=== PATIENT | female | born 1995 | race African-American/Black ===

== ENCOUNTER 2025-02-03 05:05 | Inpatient (IN) | payer OTHER, MEDICAID ==
[2025-02-03] VITALS (62 sets, daily range): BP systolic 128–226; BP diastolic 72–117; PULSE 85–102; RESP 8–18; TEMP 36.114–36.8; O2SAT 85–98
[~2025-02-03] VITALS: Ht 160.3 cm; Wt 75.5 kg
[~2025-02-03 05:05] MED LIST: INSULIN
[2025-02-03] MEDS: NITROGLYCERIN 0.4MG TABLET SL SL ONE (05:54)
[2025-02-03] MEDS: HYDRALAZINE 20MG/ML VIAL IV ONE ×2 (06:10→08:05)
[2025-02-03] MEDS: MORPHINE SULFATE 4 MG/ML INJ (FOR IV/IM USE) IV STA (06:10)
[2025-02-03] MEDS: ONDANSETRON HCL 4MG/2ML INJ IV STA (06:10)
[2025-02-03 06:27] LABS: BASOPHILS % 0.8 % (0.0-2.0); DIFFERENTIAL COMMENT 0; EOSINOPHILS % 3.9 % (0.0-5.0); HEMATOCRIT. 30.8 % (36.0-48.0); HEMOGLOBIN. 9.9 g/dL (12.0-16.0); LYMPHOCYTES % 18.3 % (20.0-50.0); MEAN CORPUSCULAR HEMOGLOBIN 24.5 pg (28.0-32.0); MEAN CORPUSCULAR HGB CONC 32.1 g/dL (31.0-37.0); MEAN CORPUSCULAR VOLUME 76.3 fL (81.0-99.0); MEAN PLATELET VOLUME 9.4 fl (7.4-10.4); MONOCYTES % 6.5 % (2.0-8.0); NEUTROPHILS % 70.5 % (40.0-76.0); PLATELET 250 x1000/uL (130-400); RED BLOOD CELL COUNT 4.04 mill/uL (4.2-5.4); RED CELL DISTRIBUTION WIDTH 18.8 % (11.6-14.6)
[2025-02-03 06:39] LABS: CHLORIDE 104 mEq/L (98-107); SODIUM 141 mEq/L (136-145)
[2025-02-03 06:40] LABS: CALCIUM 8.2 mg/dL (8.7-10.4); CARBON DIOXIDE 27 mEq/L (21-32)
[2025-02-03 06:45] LABS: HCG SCREEN NEGATIVE; UREA NITROGEN BLOOD 54 mg/dL (9-23)
[2025-02-03] MEDS ORDERED: HYDRALAZINE HCL 100MG TABLET PO ONE (07:15)
[2025-02-03 07:31] LABS: CREATININE 8.5 mg/dL (0.6-1.0); POTASSIUM 6.2 mEq/L (3.5-5.1)
[2025-02-03 07:32] LABS: GLUCOSE 102 mg/dL (70-105); TROPONIN I HIGH SENSITIVITY 310 ng/L (3.0-34)
[2025-02-03] MEDS ORDERED: CALCIUM GLUCONATE 1,000 MG in DEXT 5% WATER 100 ML IV ONE (08:00)
[2025-02-03] MEDS: HYDRALAZINE HCL 25MG TABLET PO SCH (08:12)
[2025-02-03] MEDS: DEXTROSE 50% WATER 50ML SYRINGE IV ONE (08:23)
[2025-02-03] MEDS: SODIUM BICARBONATE 8.4% 50MEQ/50ML SYR IV ONE (08:23)
[2025-02-03] MEDS: CALCIUM GLUCONATE 1GM PREMIX 50 ML IV SCH (08:23)
[2025-02-03] MEDS: INSULIN REGULAR (HUMULIN R) 1000UNITS/10ML VIAL IV ONE (08:25)
[2025-02-03] MEDS ORDERED: GUAIFENESIN 200MG/10ML SUGAR FREE UDC PO PRN (09:30)
[2025-02-03] MEDS ORDERED: MAGNESIUM/ALUMINUM HYDROXIDE/SIMETHICONE 30ML UDC PO PRN (09:30)
[2025-02-03] MEDS ORDERED: IPRATROPIUM/ALBUTEROL 0.5-3(2.5)MG/3ML NEB HHN PRN (09:30)
[2025-02-03] MEDS ORDERED: DOCUSATE SODIUM 100MG CAPSULE PO PRN (09:30)
[2025-02-03] MEDS ORDERED: ACETAMINOPHEN 325MG TABLET PO PRN (09:30)
[2025-02-03] MEDS ORDERED: DEXTROSE 50% WATER 50ML SYRINGE IV PRN (09:30)
[2025-02-03] MEDS: CLONIDINE 0.3MG TABLET PO SCH (09:49)
[2025-02-03] MEDS: LOSARTAN 25 MG TABLET PO SCH (09:49)
[2025-02-03] MEDS: LABETALOL 5MG/ML 4ML INJ IV SCH (10:03)
[2025-02-03] MEDS: ACETAMINOPHEN 325MG TABLET PO PRN (10:12)
[2025-02-03 11:24] LABS: TRIGLYCERIDE 144 mg/dL (0-150)
[2025-02-03 11:25] LABS: LDL CHOLESTEROL 95 mg/dL (5-100)
[2025-02-03 11:26] LABS: ALBUMIN 3.5 g/dL (3.2-4.8); CHOLESTEROL 162 mg/dL (<200); HDL CHOLESTEROL 39 mg/dL (>65)
[2025-02-03 11:29] LABS: IRON 39 ug/dL (50-170); THYROID STIMULATING HORMONE 2.88 uIU/mL (0.55-4.78)
[2025-02-03 11:32] LABS: TOTAL IRON BINDING CAPACITY 296 ug/dl (250-425)
[2025-02-03 11:33] LABS: FOLIC ACID (FOLATE) SERUM > 20.00 ng/mL (>5.38)
[2025-02-03 11:35] LABS: FERRITIN 40 ng/mL (10-291)
[2025-02-03 11:46] LABS: HEPATITIS B SURFACE ANTIGEN NEGATIVE (Negative)
[2025-02-03 12:24] LABS: VITAMIN B12 SERUM > 2000 pg/mL (211-911)
[2025-02-03] MEDS: BLOOD SUGAR DIAGNOSTIC STRIP TEST SCH (12:48)
[2025-02-03] MEDS: PANTOPRAZOLE SODIUM 40 MG/VIAL IV SCH (12:59)
[2025-02-03] MEDS: ENOXAPARIN 30MG/0.3ML SYR SUBCUT SCH (12:59)
[2025-02-03 13:12] LABS: HEPATITIS A AB IGM NEGATIVE (Negative)
[2025-02-03 13:13] LABS: HEPATITIS B CORE AB IGM NEGATIVE (Negative); HEPATITIS C AB NON REACTIVE (Neg) (Negative)
[2025-02-03] MEDS ORDERED: PATIENT'S OWN INSULIN PUMP XX SCH (13:15)
[2025-02-03 13:33] LABS: D-DIMER 1.75 mg/L FEU (<0.50); PHOSPHORUS 5.5 mg/dL (2.5-4.9); PROTHROMBIN TIME 10.7 sec (9.6-11.0)
[2025-02-03 13:36] LABS: T4 FREE 0.91 ng/dL (0.89-1.76)
[2025-02-03 14:10] LABS: TROPONIN I HIGH SENSITIVITY 305 ng/L (3.0-34)
[2025-02-03] MEDS: CLONIDINE 0.1MG TABLET PO PRN (14:27)
[2025-02-03] MEDS ORDERED: LABETALOL HCL 100MG TABLET PO SCH (14:30)
[2025-02-03] MEDS: FUROSEMIDE 100MG/10ML VIAL IVP SCH (14:47)
[2025-02-03] MEDS: HYDRALAZINE HCL 50MG TABLET PO SCH (16:16)
[2025-02-03] MEDS: NIFEDIPINE XL 60MG TAB PO SCH (16:17)
[2025-02-03] MEDS: NICARDIPINE 40MG/200ML PREMIX 200 ML IV PRN (18:29)
[2025-02-03] MEDS ORDERED: MAG1TABL2 PO (18:57)
[2025-02-03] MEDS ORDERED: EPOE200014 IJ (18:57)
[2025-02-03] MEDS ORDERED: BISO5TAB13 PO (18:57)
[2025-02-03] MEDS ORDERED: CALC-1098 PO (18:57)
[2025-02-03] MEDS ORDERED: LABE200T9 PO (18:57)
[2025-02-03] MEDS ORDERED: TORS20TA4 PO (18:57)
[2025-02-03] MEDS ORDERED: SULF1TAB48 PO (18:57)
[2025-02-03] MEDS ORDERED: CLON1PAT10 TD (18:57)
[2025-02-03] MEDS ORDERED: HYDR25TA78 PO (18:57)
[2025-02-03] MEDS ORDERED: MINO2.5T2 PO (18:57)
[2025-02-03] MEDS ORDERED: SEVE800T25 PO (18:57)
[2025-02-03] MEDS ORDERED: AZEL137S10 NS (18:57)
[2025-02-03] MEDS ORDERED: LOSA25TA26 PO (18:57)
[2025-02-03] MEDS ORDERED: LIPA1CAP18 PO (18:57)
[2025-02-03] MEDS ORDERED: CALC30CA PO (18:57)
[2025-02-03] MEDS ORDERED: FLUC100T42 PO (18:57)
[2025-02-03] MEDS ORDERED: DOCU-422 PO (18:57)
[2025-02-03 20:20] LABS: CREATINE KINASE MB FRACTION 2.7 ng/mL (0.5-3.6)
[2025-02-03] MEDS ORDERED: HYDRALAZINE HCL 25MG TABLET PO SCH (21:00)
[2025-02-03 21:09] LABS: TROPONIN I HIGH SENSITIVITY 326 ng/L (3.0-34)
[2025-02-03] MEDS: LABETALOL HCL 100MG TABLET PO SCH (21:48)
[2025-02-03 22:17] LABS: BASOPHILS % 0.6 % (0.0-2.0); DIFFERENTIAL COMMENT 0; EOSINOPHILS % 3.2 % (0.0-5.0); HEMATOCRIT. 28.7 % (36.0-48.0); HEMOGLOBIN. 9.3 g/dL (12.0-16.0); LYMPHOCYTES % 18.6 % (20.0-50.0); MEAN CORPUSCULAR HEMOGLOBIN 24.6 pg (28.0-32.0); MEAN CORPUSCULAR HGB CONC 32.3 g/dL (31.0-37.0); MEAN CORPUSCULAR VOLUME 76.3 fL (81.0-99.0); MEAN PLATELET VOLUME 9.1 fl (7.4-10.4); MONOCYTES % 7.7 % (2.0-8.0); NEUTROPHILS % 69.9 % (40.0-76.0); PLATELET 247 x1000/uL (130-400); RED BLOOD CELL COUNT 3.77 mill/uL (4.2-5.4); RED CELL DISTRIBUTION WIDTH 18.9 % (11.6-14.6); WHITE BLOOD COUNT 6.3 x1000/uL (4.5-11.0)
[2025-02-03 22:20] LABS: POTASSIUM 5.3 mEq/L (3.5-5.1)
[2025-02-03 22:44] LABS: CREATININE 5.9 mg/dL (0.6-1.0)
[2025-02-03 22:53] LABS: CREATINE KINASE MB FRACTION 2.3 ng/mL (0.5-3.6)
[2025-02-04] VITALS (98 sets, daily range): BP systolic 119–176; BP diastolic 74–107; PULSE 88–112; RESP 0–34; TEMP 36.5–37.4; O2SAT 91–100
[2025-02-04 06:18] LABS: BASOPHILS % 0.5 % (0.0-2.0); DIFFERENTIAL COMMENT 0; EOSINOPHILS % 4.2 % (0.0-5.0); HEMATOCRIT. 27.4 % (36.0-48.0); HEMOGLOBIN. 8.9 g/dL (12.0-16.0); LYMPHOCYTES % 26.1 % (20.0-50.0); MEAN CORPUSCULAR HEMOGLOBIN 24.7 pg (28.0-32.0); MEAN CORPUSCULAR HGB CONC 32.5 g/dL (31.0-37.0); MEAN CORPUSCULAR VOLUME 76.1 fL (81.0-99.0); MEAN PLATELET VOLUME 9.5 fl (7.4-10.4); MONOCYTES % 9.4 % (2.0-8.0); NEUTROPHILS % 59.8 % (40.0-76.0); PLATELET 241 x1000/uL (130-400); RED CELL DISTRIBUTION WIDTH 19.2 % (11.6-14.6); WHITE BLOOD COUNT 5.9 x1000/uL (4.5-11.0)
[2025-02-04 06:28] LABS: POTASSIUM 5.1 mEq/L (3.5-5.1)
[2025-02-04 06:30] LABS: CALCIUM 7.9 mg/dL (8.7-10.4)
[2025-02-04 06:33] LABS: CREATINE KINASE MB FRACTION 2.1 ng/mL (0.5-3.6)
[2025-02-04 06:40] LABS: CREATININE 6.6 mg/dL (0.6-1.0)
[2025-02-04] MEDS ORDERED: NALOXONE HCL 0.4MG/ML VIAL IV PRN (08:45)
[2025-02-04] MEDS: HYDROCODONE/ACETAMINOPHEN 5/325MG TABLET PO PRN (08:53)
[2025-02-04] MEDS: FERROUS SULFATE 325MG TABLET PO SCH (08:54)
[2025-02-04] MEDS ORDERED: KETOROLAC 30MG/ML VIAL IV PRN (09:45)
[2025-02-04] MEDS: ONDANSETRON HCL 4MG/2ML INJ IV PRN (09:50)
[2025-02-04] MEDS ORDERED: DIPHENHYDRAMINE 50MG CAPSULE PO SCH (14:30)
[2025-02-04] MEDS: METHYLPREDNISOLONE SOD SUCC 40MG/ML (ACT-O-VIAL) IV SCH ×2 (15:09→21:22)
[2025-02-04 16:16] LABS: CLARITY URINE CLEAR (CLEAR); COLOR URINE YELLOW (YELLOW); GLUCOSE URINE 1+ (NEGATIVE); KETONES URINE NEGATIVE (NEGATIVE); LEUKOCYTE ESTERASE URINE NEGATIVE (NEGATIVE); NITRITE URINE NEGATIVE (NEGATIVE); OCCULT BLOOD URINE TRACE (NEGATIVE); PH URINE 8.5 (4.5-8.0); PROTEIN URINE 4+ (NEGATIVE); UROBILINOGEN URINE 0.2 E.U./dL (0.2-1.0)
[2025-02-04 16:27] LABS: BACTERIA URINE 1+; SQUAMOUS EPITHELIAL CELL URINE 1+ /lpf (RARE/1+); WBC URINE 0-2 /hpf (0-2)
[2025-02-04 16:30] LABS: *AMPHETAMINES SCREEN URINE NEGATIVE (NEGATIVE); *BARBITURATES SCREEN URINE NEGATIVE (NEGATIVE); *BENZODIAZEPINES SCREEN URINE NEGATIVE (NEGATIVE)
[2025-02-04 16:31] LABS: *COCAINE SCREEN URINE NEGATIVE (NEGATIVE); CANNABINOID URINE SCREEN NEGATIVE (NEGATIVE); ECSTASY MDMA SCREEN URINE NEGATIVE (NEGATIVE); METHADONE URINE SCREEN NEGATIVE (NEGATIVE); OPIATES URINE SCREEN NEGATIVE (NEGATIVE); PHENCYCLIDINE URINE SCREEN NEGATIVE (NEGATIVE)
[2025-02-04] MEDS: DIPHENHYDRAMINE 50MG/ML VIAL IV SCH (18:18)
[2025-02-04] MEDS: FAMOTIDINE 20MG TABLET PO SCH (18:18)
[2025-02-04] MEDS: HYDROCODONE/ACETAMINOPHEN 10/325MG TABLET PO PRN (18:44)
[2025-02-04] MEDS: HYDRALAZINE 20MG/ML VIAL IV PRN (18:44)
[2025-02-05] VITALS (89 sets, daily range): BP systolic 117–228; BP diastolic 66–119; PULSE 82–101; RESP 0–31; TEMP 36.7–36.9; O2SAT 86–100
[2025-02-05] MEDS ORDERED: IPRATROPIUM/ALBUTEROL 0.5-3(2.5)MG/3ML NEB HHN SCH (06:00)
[2025-02-05] MEDS: CALCIUM CARBONATE/VITAMIN D3 500MG TABLET PO SCH (09:37)
[2025-02-05] MEDS: CALCITRIOL 0.25MCG CAPSULE PO SCH (09:37)
[2025-02-05] MEDS: DOXAZOSIN MESYLATE 2MG TABLET PO SCH ×2 (10:52→22:09)
[2025-02-05] MEDS: SEVELAMER CARBONATE 800 MG TABLET PO SCH (13:01)
[2025-02-05] MEDS: LIPASE/PROTEASE/AMYLASE 12,000/38,000/60,000 UNITS CAP DR PO SCH (13:01)
[2025-02-05] MEDS: HYDRALAZINE HCL 100MG TABLET PO SCH (14:29)
[2025-02-05] MEDS: NITROGLYCERIN 50MG PREMIX 250 ML IV PRN (16:21)
[2025-02-05] MEDS: DOCUSATE SODIUM 100MG CAPSULE PO SCH (18:04)
[2025-02-05] MEDS ORDERED: LABETALOL HCL 100MG TABLET PO SCH (21:00)
[2025-02-05] MEDS: METHYLPREDNISOLONE SOD SUCC 125MG/2ML (ACT-O-VIAL) IV SCH (22:08)
[2025-02-05] MEDS: LABETALOL HCL 300MG TABLET PO SCH (22:10)
[2025-02-06] VITALS (99 sets, daily range): BP systolic 123–220; BP diastolic 56–127; PULSE 85–114; RESP 0–29; TEMP 36.5–36.9; O2SAT 84–98
[2025-02-06 05:30] LABS: HEMATOCRIT. 25.9 % (36.0-48.0); HEMOGLOBIN. 8.1 g/dL (12.0-16.0); MEAN CORPUSCULAR HEMOGLOBIN 23.7 pg (28.0-32.0); MEAN CORPUSCULAR HGB CONC 31.3 g/dL (31.0-37.0); MEAN CORPUSCULAR VOLUME 75.8 fL (81.0-99.0); MEAN PLATELET VOLUME 9.7 fl (7.4-10.4); PLATELET 251 x1000/uL (130-400); RED BLOOD CELL COUNT 3.42 mill/uL (4.2-5.4); RED CELL DISTRIBUTION WIDTH 19.2 % (11.6-14.6); WHITE BLOOD COUNT 16.8 x1000/uL (4.5-11.0)
[2025-02-06 05:43] LABS: CHLORIDE 98 mEq/L (98-107)
[2025-02-06 05:44] LABS: CALCIUM 8.2 mg/dL (8.7-10.4); CARBON DIOXIDE 22 mEq/L (21-32)
[2025-02-06 05:45] LABS: DIFFERENTIAL COMMENT 1
[2025-02-06 05:49] LABS: GLUCOSE 330 mg/dL (70-105)
[2025-02-06 05:50] LABS: UREA NITROGEN BLOOD 59 mg/dL (9-23)
[2025-02-06 05:51] LABS: ALANINE AMINOTRANSFERASE < 7 IU/L (10-49); ALBUMIN 3.2 g/dL (3.2-4.8); ASPARTATE AMINOTRANSFERASE 12 IU/L (<34); PHOSPHORUS 7.6 mg/dL (2.5-4.9)
[2025-02-06 05:52] LABS: BILIRUBIN TOTAL < 0.2 mg/dL (0.1-1.0); PARTIAL THROMBOPLASTIN TIME 28.4 sec (23.4-31.0); PROTEIN TOTAL 5.8 g/dL (6.0-8.3); PROTHROMBIN TIME 10.5 sec (9.6-11.0); SODIUM 131 mEq/L (136-145)
[2025-02-06 05:55] LABS: CREATININE 8.1 mg/dL (0.6-1.0); POTASSIUM 7.3 mEq/L (3.5-5.1)
[2025-02-06] MEDS: SODIUM BICARBONATE 8.4% 50MEQ/50ML SYR IV SCH (06:30)
[2025-02-06] MEDS: DEXTROSE 50% WATER 50ML SYRINGE IV SCH (06:35)
[2025-02-06] MEDS: SODIUM ZIRCONIUM CYCLOSILICATE 10GM/PACKET PO SCH (06:36)
[2025-02-06] MEDS: INSULIN REGULAR (HUMULIN R) 1000UNITS/10ML VIAL IV SCH (06:36)
[2025-02-06] MEDS ORDERED: LIDOCAINE HCL 1% 10 MG/ML 10ML VIAL ONE (07:38)
[2025-02-06] MEDS: CALCIUM GLUCONATE 100MG/ML 10ML VIAL IV SCH (08:00)
[2025-02-06 08:24] LABS: ANISOCYTOSIS 2+; MICROCYTOSIS 1+; PLATELET ESTIMATE NORMAL
[2025-02-06] MEDS: SEVELAMER CARBONATE 800 MG TABLET PO SCH (14:08)
[2025-02-06] MEDS: CLONIDINE 0.3MG TABLET PO SCH (15:08)
[2025-02-06] MEDS: MINOXIDIL 2.5MG TABLET PO SCH (15:08)
[2025-02-06 15:39] LABS: POTASSIUM 4.4 mEq/L (3.5-5.1)
[2025-02-06 15:41] LABS: CALCIUM 7.7 mg/dL (8.7-10.4)
[2025-02-06 15:47] LABS: CREATININE 5.5 mg/dL (0.6-1.0)
[2025-02-06] MEDS ORDERED: NICARDIPINE 50 MG in SODIUM CHLORIDE 0.9% 230 ML IV PRN (18:15)
[2025-02-06] MEDS ORDERED: IOHEXOL-350 100 ML BOTTLE ONE (19:04)
[2025-02-06] MEDS: NICARDIPINE 40 MG/200 ML PREMIX 200 ML IV PRN (21:38)
[2025-02-07] VITALS (82 sets, daily range): BP systolic 98–185; BP diastolic 48–108; PULSE 84–94; RESP 0–23; TEMP 36.4–36.8; O2SAT 89–98
[2025-02-07 07:54] LABS: HEMATOCRIT 26.2 % (36.0-48.0); HEMOGLOBIN 8.7 g/dL (12.0-16.0); MEAN CORPUSCULAR HEMOGLOBIN 24.7 pg (28.0-32.0); MEAN CORPUSCULAR HGB CONC 33.2 g/dL (31.0-37.0); MEAN CORPUSCULAR VOLUME 74.4 fL (81.0-99.0); PLATELET 253 x1000/uL (130-400); RED BLOOD CELL COUNT 3.52 mill/uL (4.2-5.4); RED CELL DISTRIBUTION WIDTH 18.7 % (11.6-14.6); WHITE BLOOD COUNT 9.9 x1000/uL (4.5-11.0)
[2025-02-07 08:00] LABS: POTASSIUM 4.2 mEq/L (3.5-5.1)
[2025-02-07 08:01] LABS: CALCIUM 7.3 mg/dL (8.7-10.4)
[2025-02-07 08:46] LABS: CREATININE 6.7 mg/dL (0.6-1.0)
[2025-02-07] MEDS: MINOXIDIL 2.5MG TABLET PO SCH (13:48)
[2025-02-08] VITALS (61 sets, daily range): BP systolic 115–183; BP diastolic 52–99; PULSE 89–97; RESP 10–19; TEMP 36.5–37.1; O2SAT 86–98
[2025-02-08 05:49] LABS: BASOPHILS % 0.4 % (0.0-2.0); DIFFERENTIAL COMMENT 0; EOSINOPHILS % 2.4 % (0.0-5.0); HEMATOCRIT. 26.5 % (36.0-48.0); HEMOGLOBIN. 8.6 g/dL (12.0-16.0); LYMPHOCYTES % 22.5 % (20.0-50.0); MEAN CORPUSCULAR HEMOGLOBIN 24.3 pg (28.0-32.0); MEAN CORPUSCULAR HGB CONC 32.4 g/dL (31.0-37.0); MEAN CORPUSCULAR VOLUME 74.9 fL (81.0-99.0); MEAN PLATELET VOLUME 8.6 fl (7.4-10.4); MONOCYTES % 8.3 % (2.0-8.0); NEUTROPHILS % 66.4 % (40.0-76.0); PLATELET 250 x1000/uL (130-400); RED BLOOD CELL COUNT 3.54 mill/uL (4.2-5.4); RED CELL DISTRIBUTION WIDTH 18.4 % (11.6-14.6); WHITE BLOOD COUNT 7.7 x1000/uL (4.5-11.0)
[2025-02-08 06:06] LABS: CALCIUM 7.4 mg/dL (8.7-10.4); CARBON DIOXIDE 30 mEq/L (21-32); CHLORIDE 98 mEq/L (98-107); POTASSIUM 5.3 mEq/L (3.5-5.1); SODIUM 136 mEq/L (136-145)
[2025-02-08 06:11] LABS: GLUCOSE 125 mg/dL (70-105)
[2025-02-08 06:12] LABS: UREA NITROGEN BLOOD 58 mg/dL (9-23)
[2025-02-08 06:14] LABS: PHOSPHORUS 6.1 mg/dL (2.5-4.9)
[2025-02-08 06:45] LABS: CREATININE 8.5 mg/dL (0.6-1.0)
[2025-02-08] MEDS: MINOXIDIL 2.5MG TABLET PO SCH (08:49)
[2025-02-08] MEDS ORDERED: FERR-63 PO (11:26)
[2025-02-08] MEDS ORDERED: DOXA-14 PO (11:26)
[2025-02-08] MEDS ORDERED: HYDR100T31 PO (11:26)
[2025-02-08] MEDS ORDERED: LABE300T36 PO (11:26)
[2025-02-08] MEDS ORDERED: MINO2.5T19 PO (11:26)
[2025-02-08] MEDS ORDERED: CLON0.3T PO (11:26)
[2025-02-08] MEDS: METOCLOPRAMIDE HCL 10MG/2ML VIAL IV SCH (15:06)
== END 2025-02-08 16:00 | disposition home or self-care (01) | DRG 280 ==
LOC: ER 05:05 → 5EST 07:59 → EDBEDREQTM 08:01 → EDBEDREQ 08:01 → ENRESERV 08:06 → CVICU 18:09
PROVIDERS: ADMIT Hospitalist; ATTEND Hospitalist
PROC: 5A1D70Z Performance of Urinary Filtration, Intermittent, Less than 6 Hours Per Day (ICD-10-PCS; 2025-02-03)
PROC: 5A1D70Z Performance of Urinary Filtration, Intermittent, Less than 6 Hours Per Day (ICD-10-PCS; 2025-02-04)
PROC: 02H633Z Insertion of Infusion Device into Right Atrium, Percutaneous Approach (ICD-10-PCS; principal; 2025-02-06)
PROC: B548ZZA Ultrasonography of Superior Vena Cava, Guidance (ICD-10-PCS; 2025-02-06)
PROC: 5A1D70Z Performance of Urinary Filtration, Intermittent, Less than 6 Hours Per Day (ICD-10-PCS; 2025-02-06)
PROC: 5A1D70Z Performance of Urinary Filtration, Intermittent, Less than 6 Hours Per Day (ICD-10-PCS; 2025-02-08)
DX: I16.1 Hypertensive emergency (principal); J18.9 Pneumonia, unspecified organism; I21.A1 Myocardial infarction type 2; N18.6 End stage renal disease; I42.9 Cardiomyopathy, unspecified; E87.70 Fluid overload, unspecified; Z99.2 Dependence on renal dialysis; E87.5 Hyperkalemia; E10.40 Type 1 diabetes mellitus with diabetic neuropathy, unspecified; D50.9 Iron deficiency anemia, unspecified; I1A.0 Resistant hypertension; E10.22 Type 1 diabetes mellitus with diabetic chronic kidney disease; I70.1 Atherosclerosis of renal artery; E78.5 Hyperlipidemia, unspecified; E83.51 Hypocalcemia; Z96.41 Presence of insulin pump (external) (internal); K21.9 Gastro-esophageal reflux disease without esophagitis; E10.319 Type 1 diabetes mellitus with unspecified diabetic retinopathy without macular edema; I13.11 Hypertensive heart and chronic kidney disease without heart failure, with stage 5 chronic kidney disease, or end stage renal disease; Z79.899 Other long term (current) drug therapy; Z79.4 Long term (current) use of insulin
CPT/HCPCS: 36415; 36556; 36573; 71045; 74174; 80048; 80053; 80061; 80305; 81003; 82040; 82088; 82533; 82550; 82553; 82607; 82728; 82746; 82962; 83036; 83540; 83550; 83735; 83835; 83880; 84100; 84145; 84244; 84439; 84443; 84484; 84703; 85025; 85027; 85379; 85651; 86038; 86705; 86709; 87340; 90935; 93005; 93306; 93970; 99291; C1725; J0360; J0610; J1200; J1650; J1815; J1940; J2003; J2270; J2405; J2470; J2765; J2919; J3490; J7060; Q9967